=== PATIENT | female | born 1985 | race Caucasian/White ===

== ENCOUNTER → 2016-07-21 | Outpatient (CLI) | payer BC ==
[~2016-07-21] MED LIST: ACET500C OR; COLA100C2 OR; IBUP800T OR; PRENTAB29 PO
[2016-07-21 12:29] LABS: ANION GAP 8 MEQ/L (8-16); BLOOD UREA NITROGEN 10 MG/DL (7-18); CALCIUM LEVEL 8.5 MG/DL (8.5-10.1); CARBON DIOXIDE LEVEL 27 MEQ/L (21-32); CHLORIDE LEVEL 107 MEQ/L (98-107); CHOLESTEROL LEVEL 142 MG/DL (<200); CREATININE FOR GFR 0.73 MG/DL (0.55-1.02); GLOMERULAR FILTRATION RATE > 60.0 (>60); GLUCOSE, FASTING 82 MG/DL (70-105); POTASSIUM SERUM 4.3 MEQ/L (3.5-5.1); SODIUM LEVEL 142 MEQ/L (136-145); TRIGLYCERIDES LEVEL 96 MG/DL (<150)
== END ==
LOC: M LAB 10:57
PROVIDERS: ATTEND Nurse Practitioner Family
DX: Z13.220 Encounter for screening for lipoid disorders (principal); E66.01 Morbid (severe) obesity due to excess calories; E03.9 Hypothyroidism, unspecified

== ENCOUNTER → 2019-04-26 | Outpatient (REF) | payer BC ==
[2019-04-26 22:18] LABS: INFLUENZA A AMPLIFICATION NEGATIVE (NEGATIVE); INFLUENZA B AMPLIFICATION POSITIVE (NEGATIVE)
== END ==
LOC: M LAB REF 08:34
PROVIDERS: ATTEND Physician Assistant
DX: J11.1 Influenza due to unidentified influenza virus with other respiratory manifestations (principal)

== ENCOUNTER → 2020-04-18 | Outpatient (CLI) | payer BC ==
--- NOTE | 2020-04-19 02:24 | REP ---
INDICATION: PAIN AFTER FALL COMPARISON: None. TECHNIQUE: AP, lateral, bilateral oblique views right foot. FINDINGS: The osseous structures and joint spaces are intact and normal. There is no evidence for acute fracture or dislocation. Surrounding soft tissues are unremarkable. No subcutaneous emphysema or radiodense foreign body. Small calcaneal heel spur noted. IMPRESSION: Essentially age-appropriate examination. No acute fracture or dislocation. <Electronically signed by Tomas Mosqueda > 04/19/20 [id number]
== END ==
LOC: M WUC 15:10
PROVIDERS: ATTEND Physician Assistant
DX: M77.31 Calcaneal spur, right foot (principal); M79.671 Pain in right foot; W00.0XXA Fall on same level due to ice and snow, initial encounter

== ENCOUNTER → 2020-09-26 | Outpatient (CLI) | payer BC ==
--- NOTE | 2020-09-29 19:51 | SLEEPCENT ---
DATE: 09/26/2020 NOCTURNAL POLYSOMNOGRAPHY ORDERED BY: BENNY Gupta Nocturnal polysomnography was performed to evaluate sleep physiology in this patient with a history of excessive somnolence and nonrestorative sleep. Six hours and 57 minutes of data were reviewed. There were 247 minutes of sleep identified. Sleep latency was mildly prolonged at 17.5 minutes. REM sleep was further delayed at 204.5 minutes. Sleep architecture showed some fragmentation and periods of wake early in the study. There were two REM cycles later. Overall sleep efficiency was 60.5%. The electrocardiogram showed a sinus rhythm with an average heart rate of 70 beats per minute. EEG showed essentially normal waveforms for wake and sleep stages. There were no respiratory events identified of 10 seconds in duration or greater. Some snoring was noted and respiratory-related arousals 1.9 times per hour. There was significant activity in the limb leads, two trains of 30 events and a limb movement arousal index of 18. Oxygen desaturations remained 90% throughout the study. IMPRESSIONS: 1. Periodic limb movement disorder (G47.61). 2. Limb movement arousal index 18. RECOMMENDATION: Interventions to reduce the frequency or arousal from limb activity should improve the quality of the patient's sleep. cc: Ariela Chacko NP
== END ==
LOC: M SLEEP 20:00
PROVIDERS: ATTEND Nurse Practitioner Family
DX: R06.83 Snoring (principal); G47.61 Periodic limb movement disorder

== ENCOUNTER → 2021-01-20 | Outpatient (CLI) | payer BC ==
--- NOTE | 2021-01-20 16:25 | REPVR ---
PROCEDURE INFORMATION: Exam: CT Maxillofacial Without Contrast, Sinus Exam date and time: 01/20/2021 4:07 PM Age: 35 years old Clinical indication: Sinusitis; Type not specified; Additional info: Chronic maxillary sinusitis TECHNIQUE: Imaging protocol: CT Maxillofacial without contrast. Focus on the sinuses. Axial, coronal and sagittal reformatted images were created and reviewed. Radiation optimization: All CT scans at this facility use at least one of these dose optimization techniques: automated exposure control; mA and/or kV adjustment per patient size (includes targeted exams where dose is matched to clinical indication); or iterative reconstruction. COMPARISON: No relevant prior studies available. FINDINGS: Frontal sinuses: Normal. No air-fluid levels. Ethmoid air cells: Mild ethmoid mucosal thickening. Sphenoid sinuses: Mild polypoid left sphenoid sinus. Maxillary sinuses: Right maxillary sinus polyp versus mucous retention cyst. Nasal cavity/Septum: Unremarkable. Orbital cavity: Orbits are normal. Globes are unremarkable. Bones/joints: Unremarkable. Soft tissues: Unremarkable. IMPRESSION: Mild chronic sinusitis. Electronically signed by: Bo Doshi On 01/20/2021 16:25:07 PM
== END ==
LOC: M RAD 15:59
PROVIDERS: ATTEND Otolaryngology
DX: J32.0 Chronic maxillary sinusitis (principal); J33.8 Other polyp of sinus

== ENCOUNTER → 2022-01-14 | Outpatient (CLI) | payer BC ==
[~2022-01-14] MED LIST changes: +ISOVUE-370 76% 100ML VIAL As Ordered ONE
== END ==
LOC: M RAD 14:56
PROVIDERS: ATTEND Registered Nurse
DX: R91.1 Solitary pulmonary nodule (principal)
CPT/HCPCS: 71260; Q9967

== ENCOUNTER → 2022-11-18 | Outpatient (CLI) | payer OTHER ==
[~2022-11-18] MED LIST changes: -ISOVUE-370 76% 100ML VIAL As Ordered ONE
== END ==
LOC: M WHC 12:07
PROVIDERS: ATTEND Registered Nurse
DX: R10.2 Pelvic and perineal pain (principal)